=== PATIENT | female | born 1955 | race Caucasian/White ===

== ENCOUNTER 2018-04-11 06:47 | Emergency (ER) | payer OTHER ==
[2018-04-11] MEDS ORDERED: LIDOCAINE PATCH 5% TOP PRN (07:10)
[2018-04-11] MEDS ORDERED: oxyCOD/ACETAMIN 5 MG/325 MG TABLET PO STA (07:10)
--- NOTE | 2018-04-11 07:23 | ED Physician Documentation ---
History of Present Illness - Stated complaint Stated Complaint: LEFT RIB INJ - Chief complaint Chief Complaint: General - Additonal information Additional information: hx from pt 62 stepped off a high curb and fell injuring L ant lower L ribs several days ago no head neck injury pain is inc despite motrin no blood thinners no abd pain Review of Systems Constitutional: denies: Fever, Chills Cardiac: reports: Chest pain / pressure Respiratory: reports: Dyspnea (due to pain) GI: denies: Abdominal Pain Endocrine: denies: Easy bruising / bleeding PD PAST MEDICAL HISTORY - Present Medications Home Medications: Ambulatory Orders Medication Instructions Recorded Confirmed Aspirin 1 tab PO DAILY 04/11/18 04/11/18 Cholecalciferol (Vitamin D3) 1 tab PO DAILY 04/11/18 04/11/18 [Vitamin D3] Lidocaine Patch 5% [Lidoderm Patch] 1 each TOP DAILY PRN #10 patch 04/11/18 Losartan Potassium 1 tab PO DAILY 04/11/18 04/11/18 Lovastatin 1 tab PO DAILY 04/11/18 04/11/18 Melatonin 1 tab PO QPM 04/11/18 04/11/18 Oxycodone HCl/Acetaminophen 1 each PO Q6HR PRN #15 tablet 04/11/18 [Percocet 5-325 mg Tablet] - Allergies Allergies/Adverse Reactions: Allergies Allergy/AdvReac Type Severity Reaction Status Date / Time Cephalosporins Allergy Anaphylaxis Verified 04/11/18 06:57 Penicillins Allergy Anaphylaxis Verified 04/11/18 06:57 Sulfa (Sulfonamide Allergy Anaphylaxis Verified 04/11/18 06:57 Antibiotics) PD ED PE NORMAL - Vitals Vital signs reviewed: Yes - General General: Alert and oriented X 3 - HEENT HEENT: Atraumatic - Cardiac Cardiac: RRR - Respiratory Respiratory: Other (shallow but has everardo breath sounds, severer TTP ant lower left ribs, no bruise or crepitus) - Abdomen Abdomen: Other (no splenic TTP or swelling) - Derm Derm: Normal color - Neuro Neuro: Alert and oriented X 3 Results - Vitals Vitals: Vital Signs - 24 hr 04/11/18 06:52 Temperature 36.5 C Heart Rate 105 H Respiratory 18 Rate Blood Pressure 150/76 H O2 Saturation 98 Oxygen O2 Source Room air - Rads (name of study) L ribs and CXR Radiology: See rad report (acute min displaced L ant rib fx (per rad report right but looks left to me and on exam pain is left sided)) PD MEDICAL DECISION MAKING - ED course ED course: MSE performed injury identified - rib fx without pneumo hemo no life/limb threatening illness or injury identified s/sx managed and tx initiated feel pt stable and safe for dc - Sepsis Event Vital Signs: Vital Signs - 24 hr 04/11/18 06:52 Temperature 36.5 C Heart Rate 105 H Respiratory 18 Rate Blood Pressure 150/76 H O2 Saturation 98 Oxygen O2 Source Room air Departure - Departure Disposition: Home, Self Care Clinical Impression: Closed rib fracture Qualifiers: Encounter type: initial encounter Rib fracture type: single rib Laterality: left Qualified Code(s): S22.32XA - Fracture of one rib, left side, initial encounter for closed fracture Condition: Good Instructions: ED Fx Rib Prescriptions: Oxycodone HCl/Acetaminophen [Percocet 5-325 mg Tablet] 1 each PO Q6HR PRN #15 tablet PRN Reason: Severe Pain Lidocaine Patch 5% [Lidoderm Patch] 1 each TOP DAILY PRN #10 patch PRN Reason: Pain Comments: You have a fracture of rib number 7. There is no lung collapse or bleeding of the lung It is safe for you to go home The treatment for rib fractures without underlying lung injury is primarily pain management and encouraging deep breathing several times a day to prevent developing lung collapse or infection In addition to the motrin you have been taking, i have prescribed lidocaine patches - may wear one per day to the site of pain for up to 12 hr a day. And percocet which is a narcotic -- please limit narcotic use to severe pain only. And we gave you a device called an incentive spirometer that i would like you to use every hr while awake to help keep you lung inflated. Follow up with your PMD as needed. Return to the ER if worse
--- NOTE | 2018-04-11 07:50 | XRAY Report ---
Procedure Date: 04/11/2018 Accession Number: [id number] / [id number] Procedure: XR - Ribs w/PA Chest LT CPT Code: FULL RESULT: EXAM: LEFT RIB RADIOGRAPHY EXAM DATE: 04/11/2018 07:41 AM. CLINICAL HISTORY: Fell 5 days ago , hurt anterior lower left ribs. Left rib pain. COMPARISON: None. TECHNIQUE: 1 view of the chest and 2 views of the ribs. FINDINGS: Bones: There is an acute minimally displaced fracture of the anterior aspect of the right seventh rib, seen on the FRAZIER image only. The remainder of visualized bones appear intact. Lungs: No focal opacities. No pneumothorax. No pleural effusions. Mediastinum: Heart and mediastinal contours are unremarkable. Other: None. IMPRESSION: 1. Acute minimally displaced fracture of the right anterior seventh rib. 2. No pneumothorax, pleural effusion, or other acute cardiopulmonary. RADIA
[2018-04-11 08:47] VITALS: BP 146/91
== END 2018-04-11 08:47 | disposition home or self-care (01) ==
LOC: ED 06:47
DX: S22.32XA Fracture of one rib, left side, initial encounter for closed fracture (principal); W10.1XXA Fall (on)(from) sidewalk curb, initial encounter; Y92.480 Sidewalk as the place of occurrence of the external cause
CPT/HCPCS: 71101; 99283; A9270

== ENCOUNTER 2019-11-05 09:34 | Outpatient (CLI) | payer MEDICARE ==
[2019-11-05 17:29] LABS: ALBUMIN 4.1 g/dL (3.2-5.5); ALBUMIN/GLOBULIN RATIO 1.2 (1.0-2.2); ALKALINE PHOSPHATASE 72 IU/L (42-121); ALT ALANINE AMINOTRANSFERASE 36 IU/L (10-60); AST ASPARTATE AMINOTRANSFERASE 29 IU/L (10-42); BILIRUBIN,TOTAL 1.4 mg/dL (0.2-1.0); BUN - BLOOD UREA NITROGEN 21 mg/dL (6-20); CALCIUM 9.1 mg/dL (8.5-10.3); CARBON DIOXIDE - CO2 27 mmol/L (21-32); CHLORIDE 101 mmol/L (101-111); CHOL/HDL RATIO 3.4 (<4.4); CHOLESTEROL 143 mg/dL; CREATININE 0.8 mg/dL (0.4-1.0); GFR - MDRD 72 (>89); GLUCOSE 106 mg/dL (70-100); HDL CHOLESTEROL 42 mg/dL; LDL CHOLESTEROL,CALCULATED 58 mg/dL; LDL/HDL RATIO 1.4 (<4.4); SODIUM 138 mmol/L (135-145); TOTAL PROTEIN 7.4 g/dL (6.7-8.2); VLDL CHOLESTEROL 43 mg/dL
== END 2019-11-05 09:35 | disposition home or self-care (01) ==
LOC: LAB.S 09:34
PROVIDERS: ATTEND Internal Medicine
DX: E78.5 Hyperlipidemia, unspecified (principal); E03.9 Hypothyroidism, unspecified
CPT/HCPCS: 36415; 80053; 80061; 83721; 84443

== ENCOUNTER 2020-01-14 17:44 | Outpatient (CLI) | payer MEDICARE | END 2020-01-14 17:45 | disposition home or self-care (01) | LOC: COV 17:44 | PROVIDERS: ATTEND Family Medicine | DX: R50.9 Fever, unspecified (principal); M79.10 Myalgia, unspecified site; R53.83 Other fatigue; J02.9 Acute pharyngitis, unspecified; R19.7 Diarrhea, unspecified | CPT/HCPCS: 81599 ==

== ENCOUNTER 2020-04-02 13:46 | Outpatient (CLI) | payer MEDICARE ==
--- NOTE | 2020-04-02 14:53 | DEXA Report ---
Reason: POST MENOPAUSAL Procedure Date: 04/02/2020 Accession Number: [id number] / [id number] Procedure: DEX - Dexa Spine and/or Hip CPT Code: Final Report FULL RESULT: PROCEDURE: Dexa Spine and/or Hip INDICATIONS: POST MENOPAUSAL TECHNIQUE: Dual energy x-ray absorptiometry (DXA) was performed on a Center'd System. Regions measured are the AP Spine, femoral neck, and if needed forearm. COMPARISON: None. FINDINGS: Lumbar Spine: Bone Mineral Density 1.052g/cm/cm,T score -1.0 Total left Hip: Bone Mineral Density 1.03 g/cm/cm,T score 0.2. Left Femoral Neck: Bone Mineral Density 0.899 g/cm/cm, T score -1.0 (T score greater or equal to -1.0: NORMAL) (T score from -1.1 to -2.4: OSTEOPENIA) (T score less than or equal to -2.5 to: OSTEOPOROSIS) Impression: Normal bone mineral density. Patients with diagnosis of osteoporosis or osteopenia should have regular bone mineral density assessment. For those eligible for Medicare, routine testing is allowed once every 2 years. Testing frequency can be increased for patients who have rapidly progressing disease or for those who are receiving medical therapy to restore bone mass. Reviewed by: Michel Stapleton MD on 04/02/2020 2:52 PM PDT Approved by: Michel Stapleton MD on 04/02/2020 2:52 PM PDT Station ID: [id number]
== END 2020-04-02 13:47 | disposition home or self-care (01) ==
LOC: DI 13:46
PROVIDERS: ATTEND Internal Medicine
DX: Z78.0 Asymptomatic menopausal state (principal)
CPT/HCPCS: 77080

== ENCOUNTER 2021-02-01 09:11 | Outpatient (CLI) | payer MEDICARE ==
[2021-02-01 14:55] LABS: BASOPHILS # (AUTO) 0.1 10^3/uL (0.0-0.1); EOSINOPHILS # (AUTO) 0.3 10^3/uL (0.0-0.7); EOSINOPHILS % (AUTO) 5.5 %; HCT - HEMATOCRIT 45.8 % (37.0-47.0); HGB - HEMOGLOBIN 15.3 g/dL (12.0-16.0); LYMPHOCYTES # (AUTO) 1.4 10^3/uL (1.5-3.5); LYMPHOCYTES % (AUTO) 23.7 %; MEAN CORPUSCULAR HEMOGLOBIN 30.7 pg (27.0-31.0); MEAN CORPUSCULAR HGB CONC 33.4 g/dL (32.0-36.0); MEAN CORPUSCULAR VOLUME 91.8 fL (81.0-99.0); MEAN PLATELET VOLUME 10.6 fL (7.9-10.8); MONOCYTES # (AUTO) 0.5 10^3/uL (0.0-1.0); MONOCYTES % (AUTO) 8.1 %; NEUTROPHILS # (AUTO) 3.7 10^3/uL (1.5-6.6); NEUTROPHILS % (AUTO) 61.5 %; PLT - PLATELET COUNT 194 10^3/uL (130-450); RED BLOOD COUNT 4.99 10^6/uL (4.20-5.40); RED CELL DISTRIBUTION WIDTH 13.9 % (12.0-15.0)
[2021-02-01 15:19] LABS: ALBUMIN 4.1 g/dL (3.2-5.5); ALBUMIN/GLOBULIN RATIO 1.4 (1.0-2.2); ALKALINE PHOSPHATASE 77 IU/L (42-121); ALT ALANINE AMINOTRANSFERASE 28 IU/L (10-60); AST ASPARTATE AMINOTRANSFERASE 27 IU/L (10-42); BILIRUBIN,TOTAL 1.3 mg/dL (0.2-1.0); BUN - BLOOD UREA NITROGEN 25 mg/dL (6-20); CALCIUM 9.2 mg/dL (8.5-10.3); CARBON DIOXIDE - CO2 26 mmol/L (21-32); CHLORIDE 101 mmol/L (101-111); CHOL/HDL RATIO 4.5 (<4.4); CHOLESTEROL 178 mg/dL; CREATININE 0.9 mg/dL (0.4-1.0); GFR - MDRD 63 (>89); GLUCOSE 103 mg/dL (70-100); HDL CHOLESTEROL 40 mg/dL; LDL CHOLESTEROL,CALCULATED 83 mg/dL; LDL/HDL RATIO 2.1 (<4.4); POTASSIUM 4.3 mmol/L (3.5-5.0); SODIUM 137 mmol/L (135-145); TOTAL PROTEIN 7.1 g/dL (6.7-8.2); TRIGLYCERIDES 273 mg/dL; VLDL CHOLESTEROL 55 mg/dL
[2021-02-01 15:28] LABS: THYROID STIMULATING HORMONE 2.55 uIU/mL (0.34-5.60)
== END 2021-02-01 09:12 | disposition home or self-care (01) ==
LOC: LAB.S 09:11
PROVIDERS: ATTEND Registered Nurse
DX: E78.5 Hyperlipidemia, unspecified (principal); E03.9 Hypothyroidism, unspecified; I10 Essential (primary) hypertension; M54.31 Sciatica, right side
CPT/HCPCS: 36415; 80053; 80061; 83721; 84443; 85025

== ENCOUNTER 2021-02-11 07:27 | Day surgery (SDC) | payer MEDICARE ==
[~2021-02-11 07:27] MED LIST: SODIUM/POTASSIUM/MAG SULFATES 354 ML PREP KIT PO SCH
[2021-02-11] MEDS ORDERED: LACTATED RINGERS 1,000 ML IV ONE ×2 (07:58→09:10)
[2021-02-11] MEDS ORDERED: ONDANSETRON 4 MG/2 ML VIAL ONE (08:01)
[2021-02-11] MEDS ORDERED: MIDAZOLAM 2 MG/2 ML VIAL ONE ×3 (08:25→08:47)
[2021-02-11] MEDS ORDERED: fentaNYL 250 MCG/5 ML VIAL ONE (08:26)
[2021-02-11 09:27] VITALS: BP 148/86
== END 2021-02-11 07:28 | disposition home or self-care (01) ==
LOC: SDS 07:27
PROVIDERS: ATTEND Surgery
PROC: 0DBL8ZX Excision of Transverse Colon, Via Natural or Artificial Opening Endoscopic, Diagnostic (ICD-10-PCS; principal; 2021-02-11 09:00)
DX: Z12.11 Encounter for screening for malignant neoplasm of colon (principal); D12.3 Benign neoplasm of transverse colon; K57.30 Diverticulosis of large intestine without perforation or abscess without bleeding; Z87.19 Personal history of other diseases of the digestive system; Z90.49 Acquired absence of other specified parts of digestive tract
CPT/HCPCS: 45380; A9270; J3010; J7120

== ENCOUNTER 2021-04-02 08:00 | Outpatient (CLI) | payer MEDICARE ==
--- NOTE | 2021-04-02 15:19 | XRAY Report ---
PROCEDURE: Chest 2 View X-Ray INDICATIONS: CHEST PAIN, ACUTE TECHNIQUE: 2 view(s) of the chest. COMPARISON: None. FINDINGS: Surgical changes and devices: None. Lungs and pleura: No pleural effusions or pneumothorax. Lungs are clear. Mediastinum: Mediastinal contours are normal. Heart size is normal. Bones and chest wall: No suspicious bony abnormalities. Soft tissues appear unremarkable. IMPRESSION: No acute process. Reviewed by: Fitz Yusuf MD on 04/02/2021 3:18 PM PDT Approved by: Fitz Yusuf MD on 04/02/2021 3:18 PM PDT Station ID: [id number]
== END 2021-04-02 23:59 | disposition home or self-care (01) ==
LOC: DI.S 08:00
PROVIDERS: ATTEND Physician Assistant
DX: R07.89 Other chest pain (principal)

== ENCOUNTER 2022-03-30 12:13 | Outpatient (CLI) | payer MEDICARE | END 2022-03-30 12:14 | disposition home or self-care (01) | LOC: LAB.S 12:13 | PROVIDERS: ATTEND Registered Nurse | DX: Z53.9 Procedure and treatment not carried out, unspecified reason (principal) ==

== ENCOUNTER 2022-03-31 09:26 | Outpatient (CLI) | payer MEDICARE ==
[2022-03-31 15:15] LABS: ALBUMIN 4.1 g/dL (3.2-5.5); BILIRUBIN,DIRECT 0.2 mg/dL (0.1-0.5); BILIRUBIN,TOTAL 1.3 mg/dL (0.2-1.0); TOTAL PROTEIN 6.8 g/dL (6.7-8.2)
== END 2022-03-31 09:27 | disposition home or self-care (01) ==
LOC: LAB.S 09:26
PROVIDERS: ATTEND Physician Assistant
DX: B35.1 Tinea unguium (principal)
CPT/HCPCS: 36415; 80076

== ENCOUNTER 2022-06-07 10:37 | Outpatient (CLI) | payer MEDICARE ==
[2022-06-07 14:30] LABS: ALBUMIN 4.1 g/dL (3.2-5.5); BILIRUBIN,DIRECT 0.2 mg/dL (0.1-0.5); BILIRUBIN,TOTAL 1.3 mg/dL (0.2-1.0); TOTAL PROTEIN 7.1 g/dL (6.7-8.2)
== END 2022-06-07 10:38 | disposition home or self-care (01) ==
LOC: LAB.S 10:37
PROVIDERS: ATTEND Physician Assistant
DX: B35.1 Tinea unguium (principal)
CPT/HCPCS: 36415; 80076

== ENCOUNTER 2022-07-16 07:51 | Emergency (ER) | payer MEDICARE ==
[2022-07-16 08:04] VITALS: BP 107/75
--- NOTE | 2022-07-16 08:15 | ED Physician Documentation ---
PD HPI LOWER EXT INJURY - Stated complaint Stated Complaint: LEFT FOOT INJ - Chief complaint Chief Complaint: Trauma Ext - History obtained from History obtained from: Patient - History of Present Illness PD HPI LOW EXT INJURY LOCATION: Left - Additional information Additional information: She dropped an empty asia jar on the left foot and has moderate pain in the area of the first metatarsal. This happened around 8:30 PM last night. She declines pain medication on initial evaluation. She is able to walk but has to walk on the outside of the foot. Review of Systems Constitutional: reports: Reviewed and negative Eyes: reports: Reviewed and negative Respiratory: reports: Reviewed and negative PD PAST MEDICAL HISTORY - Past Medical History Past Medical History: Yes Cardiovascular: Hypertension, High cholesterol, Deep vein thrombosis Respiratory: None Neuro: None Endocrine/Autoimmune: HyPOthyroidism, Other GI: None SENIOR PRINCIPAL SOFTWARE ENGINEER: Endometriosis : None HEENT: None Psych: None Musculoskeletal: None Derm: None - Past Surgical History Past Surgical History: No General: Bowel surgery /SENIOR PRINCIPAL SOFTWARE ENGINEER: Hysterectomy HEENT: Tonsil/Adenoidectomy - Present Medications Home Medications: Ambulatory Orders Medication Instructions Recorded Confirmed Cholecalciferol (Vitamin D3) 1 tab PO DAILY 04/11/18 07/16/22 [Vitamin D3] Losartan Potassium 1 tab PO DAILY 04/11/18 07/16/22 Melatonin 1 tab PO QPM 04/11/18 07/16/22 hydroCHLOROthiazide 12.5 mg PO DAILY 02/10/21 07/16/22 [Hydrochlorothiazide] Aspirin [Aspirin EC] 81 mg PO DAILY 07/16/22 07/16/22 Atorvastatin Calcium 40 mg PO HS 07/16/22 07/16/22 Folic Acid 1 mg PO DAILY 07/16/22 07/16/22 Levothyroxine [Synthroid] 75 mcg PO QDAC 07/16/22 07/16/22 Methotrexate [Methotrexate Sodium] 6 tab PO Q7D 07/16/22 07/16/22 - Allergies Allergies/Adverse Reactions: Allergies Allergy/AdvReac Type Severity Reaction Status Date / Time Cephalosporins Allergy Anaphylaxis Verified 07/16/22 08:01 Penicillins Allergy Anaphylaxis Verified 07/16/22 08:01 Sulfa (Sulfonamide Allergy Anaphylaxis Verified 07/16/22 08:01 Antibiotics) - Social History Does the pt smoke?: No Smoking Status: Never smoker Does the pt drink ETOH?: Yes Does the pt have substance abuse?: No - Immunizations Immunizations are current?: Yes PD ED PE NORMAL - Vitals Vital signs reviewed: Yes - General General: Alert and oriented X 3, No acute distress - Extremities Extremities: Other (Tender and bruised in the area of the mid and distal first metatarsal with pain with range of motion of the great toe. No other foot or ankle tenderness.) - Neuro Neuro: Alert and oriented X 3, Normal speech Results - Vitals Vitals: Vital Signs - 24 hr 07/16/22 08:01 Temperature 36.3 C L Heart Rate 77 Respiratory 16 Rate Blood Pressure 107/75 O2 Saturation 100 Oxygen O2 Source Room air - Rads (name of study) Three-view x-ray of the left foot demonstrate soft tissue swelling without fracture Radiology: EMP read contemporaneously Departure - Departure Disposition: 01 Home, Self Care Clinical Impression: Crush injury of left foot Condition: Good Record reviewed to determine appropriate education?: Yes Instructions: ED Contusion Foot Comments: Tylenol and/or ibuprofen as needed for pain. Return for new or worsening symptoms. Follow-up with your doctor in a week for reevaluation if not better. Discharge Date/Time: 07/16/22 08:51
--- NOTE | 2022-07-16 08:49 | XRAY Report ---
PROCEDURE: Foot 3 View LT INDICATIONS: foot inj TECHNIQUE: 3 views of the foot were acquired. COMPARISON: None FINDINGS: Bones: No fractures or dislocations. No suspicious bony lesions. Plantar and dorsal calcaneal spur s. Soft tissues: No tibiotalar joint effusion. Achilles tendon appears normal. Mild great toe soft ti ssue swelling. No visible radiodense debris. IMPRESSION: Mild great toe soft tissue swelling without underlying foreign body or fracture. Reviewed by: Jessica Tavares MD on 07/16/2022 7:48 AM [facility] Approved by: Jessica Tavares MD on 07/16/2022 7:48 AM [facility] Station ID: [id number]
== END 2022-07-16 08:51 | disposition home or self-care (01) ==
LOC: ED 07:51
DX: S97.82XA Crushing injury of left foot, initial encounter (principal); W20.8XXA Other cause of strike by thrown, projected or falling object, initial encounter; I10 Essential (primary) hypertension
CPT/HCPCS: 99282; 99283

== ENCOUNTER 2022-12-29 09:32 | Outpatient (CLI) | payer MEDICARE ==
[2022-12-29 14:25] LABS: BASOPHILS % (AUTO) 0.8 %; EOSINOPHILS # (AUTO) 0.3 10^3/uL (0.0-0.7); EOSINOPHILS % (AUTO) 5.4 %; HCT - HEMATOCRIT 44.8 % (37.0-47.0); HGB - HEMOGLOBIN 14.8 g/dL (12.0-16.0); LYMPHOCYTES # (AUTO) 1.7 10^3/uL (1.5-3.5); LYMPHOCYTES % (AUTO) 32.5 %; MEAN CORPUSCULAR HEMOGLOBIN 30.8 pg (27.0-31.0); MEAN CORPUSCULAR VOLUME 93.1 fL (81.0-99.0); MEAN PLATELET VOLUME 10.3 fL (7.9-10.8); MONOCYTES # (AUTO) 0.5 10^3/uL (0.0-1.0); MONOCYTES % (AUTO) 9.9 %; NEUTROPHILS # (AUTO) 2.7 10^3/uL (1.5-6.6); PLT - PLATELET COUNT 216 10^3/uL (130-450); RED BLOOD COUNT 4.81 10^6/uL (4.20-5.40); RED CELL DISTRIBUTION WIDTH 13.6 % (12.0-15.0); WHITE BLOOD COUNT 5.2 x10^3/uL (4.8-10.8)
[2022-12-29 14:52] LABS: ALBUMIN 3.8 g/dL (3.2-5.5); ALBUMIN/GLOBULIN RATIO 1.3 (1.0-2.2); ALKALINE PHOSPHATASE 89 IU/L (42-121); ALT ALANINE AMINOTRANSFERASE 27 IU/L (10-60); AST ASPARTATE AMINOTRANSFERASE 24 IU/L (10-42); BILIRUBIN,TOTAL 1.7 mg/dL (0.2-1.0); BUN - BLOOD UREA NITROGEN 24 mg/dL (6-20); CALCIUM 9.2 mg/dL (8.5-10.3); CARBON DIOXIDE - CO2 30 mmol/L (21-32); CHLORIDE 104 mmol/L (101-111); CHOL/HDL RATIO 3.5 (<4.4); CHOLESTEROL 138 mg/dL; CREATININE 0.8 mg/dL (0.4-1.0); GFR - MDRD 71 (>89); GLUCOSE 104 mg/dL (70-100); HDL CHOLESTEROL 39 mg/dL; LDL CHOLESTEROL,CALCULATED 62 mg/dL; LDL/HDL RATIO 1.6 (<4.4); POTASSIUM 4.1 mmol/L (3.5-5.0); SODIUM 138 mmol/L (135-145); TOTAL PROTEIN 6.8 g/dL (6.7-8.2); TRIGLYCERIDES 184 mg/dL; VLDL CHOLESTEROL 37 mg/dL
[2022-12-29 15:05] LABS: THYROID STIMULATING HORMONE 2.77 uIU/mL (0.34-5.60)
== END 2022-12-29 09:33 | disposition home or self-care (01) ==
LOC: LAB.S 09:32
PROVIDERS: ATTEND Registered Nurse
DX: E03.9 Hypothyroidism, unspecified (principal); I25.2 Old myocardial infarction
CPT/HCPCS: 36415; 80053; 80061; 83721; 84443; 85025

== ENCOUNTER 2023-10-25 20:44 | Emergency (ER) | payer MEDICARE ==
--- NOTE | 2023-10-25 21:03 | ED Physician Documentation ---
PD HPI CHEST PAIN - Stated complaint Stated Complaint: CHEST PX - Chief complaint Chief Complaint: Cardiac - History obtained from History obtained from: Patient - History of Present Illness Timing - onset: Today Timing - onset during: Rest Pain level max: 8 Pain level now: 3 Quality: Aching, Pain Radiation: Other (non-radiating) - Additional information Additional information: Patient is a 68-year-old female who presents to the emergency department with epigastric pain. She states that she ate tacos with sour cream and cheese and guacamole tonight. Pain started about 40 minutes later. She states it starts in her mid back and goes to her epigastric region. This has happened 9 or 10 times in the past few years. No cause found. She states that she has had a normal cardiac stress test. Stress test was within the last 12 months. She has never had her gallbladder evaluated. Does have a history of abdominal wall hernias. Also has a history of complicated diverticulitis that resulted in a colostomy. The colostomy has been reversed now. Review of Systems Constitutional: denies: Fever, Chills Respiratory: denies: Cough GI: denies: Nausea, Vomiting, Diarrhea Skin: denies: Rash Musculoskeletal: denies: Neck pain, Back pain Neurologic: denies: Focal weakness, Numbness, Headache PD PAST MEDICAL HISTORY - Past Medical History Past Medical History: Yes Cardiovascular: Hypertension, High cholesterol, Deep vein thrombosis Respiratory: None Neuro: None Endocrine/Autoimmune: HyPOthyroidism, Other GI: None CHIEF PROGRAM OFFICER: Endometriosis : None HEENT: None Psych: None Musculoskeletal: None Derm: None - Past Surgical History Past Surgical History: No General: Bowel surgery /CHIEF PROGRAM OFFICER: Hysterectomy HEENT: Tonsil/Adenoidectomy - Present Medications Home Medications: Ambulatory Orders Medication Instructions Recorded Confirmed Cholecalciferol (Vitamin D3) 1 tab PO DAILY 04/11/18 07/16/22 [Vitamin D3] Losartan Potassium 1 tab PO DAILY 04/11/18 07/16/22 Melatonin 1 tab PO QPM 04/11/18 07/16/22 hydroCHLOROthiazide 12.5 mg PO DAILY 02/10/21 07/16/22 [Hydrochlorothiazide] Aspirin [Aspirin EC] 81 mg PO DAILY 07/16/22 07/16/22 Atorvastatin Calcium 40 mg PO HS 07/16/22 07/16/22 Folic Acid 1 mg PO DAILY 07/16/22 07/16/22 Levothyroxine [Synthroid] 75 mcg PO QDAC 07/16/22 07/16/22 Methotrexate [Methotrexate Sodium] 6 tab PO Q7D 07/16/22 07/16/22 - Allergies Allergies/Adverse Reactions: Allergies Allergy/AdvReac Type Severity Reaction Status Date / Time Cephalosporins Allergy Anaphylaxis Verified 10/25/23 20:56 Penicillins Allergy Anaphylaxis Verified 10/25/23 20:56 Sulfa (Sulfonamide Allergy Anaphylaxis Verified 10/25/23 20:56 Antibiotics) - Social History Does the pt smoke?: No Smoking Status: Never smoker Does the pt drink ETOH?: Yes Does the pt have substance abuse?: No - Immunizations Immunizations are current?: Yes - POLST Patient has POLST: No PD ED PE NORMAL - Vitals Vital signs reviewed: Yes - General General: Alert and oriented X 3, No acute distress - HEENT HEENT: PERRL, Moist mucous membranes - Cardiac Cardiac: RRR, Strong equal pulses - Respiratory Respiratory: No respiratory distress, Clear bilaterally - Abdomen Abdomen: Soft, Non distended, Other (Tender to palpation right upper quadrant. Positive Hinds sign.) - Back Back: No spinal TTP - Derm Derm: Warm and dry - Extremities Extremities: No edema - Neuro Neuro: Alert and oriented X 3 - Psych Psych: Normal mood, Normal affect Results - Vitals Vitals: Vital Signs - 24 hr 10/25/23 10/25/23 10/25/23 20:45 21:46 22:39 Temperature 37.1 C Heart Rate 78 79 82 Respiratory 18 18 23 Rate Blood Pressure 153/81 H 135/71 H 137/76 H O2 Saturation 100 98 95 Oxygen O2 Source Room air - EKG (time done) 2046 EKG releavant findings:: EKG personally interpreted by author of this note. Relevant findings are: Rate: Rate (enter#) (76) Rhythm: NSR [place]: Normal Intervals: Normal SC QRS: Normal Ischemia: Normal ST segments - Labs Labs: Laboratory Tests 10/25/23 10/25/23 21:00 21:00 WBC 6.4 RBC 4.57 Hgb 13.3 Hct 41.0 MCV 89.7 MCH 29.1 MCHC 32.4 RDW 13.2 Plt Count 200 MPV 9.5 Neut # (Auto) 3.7 Lymph # (Auto) 1.7 [place] # (Auto) 0.5 Eos # (Auto) 0.4 Baso # (Auto) 0.0 Absolute Nucleated RBC 0.00 Nucleated RBC % 0.0 Sodium 138 Potassium 3.3 L Chloride 101 Carbon Dioxide 29 Anion Gap 8.0 BUN 27 H Creatinine 0.8 Estimated GFR (MDRD) 71 L Glucose 107 H Calcium 9.5 Total Bilirubin 1.2 H AST 34 ALT 28 Alkaline Phosphatase 125 H Troponin I High Sens 2.4 Total Protein 6.7 Albumin 3.9 Globulin 2.8 Albumin/Globulin Ratio 1.4 Lipase 23 - Rads (name of study) RUQ US Relevant Findings:: Final report received, See rad report cxr Relevant Findings:: Final report received, See rad report PD Medical Decision Making - ED course Complexity details: reviewed results, re-evaluated patient, considered differential, d/w patient ED course: 68-year-old female with what appears to be biliary colic. She has multiple small gallstones. Minimal elevation of her bilirubin and alkaline phosphatase. Pain completely resolved in the emergency department, likely passed a small stone. Blood cell count is normal. No evidence of cholecystitis on ultrasound. Patient is well-appearing, nontoxic. Afebrile. Tolerating p.o. without difficulty. Recommend low-fat diet, follow-up with outpatient surgery for gallbladder removal when she is healed from her most recent hernia surgery. Abdominal exam is otherwise benign. No signs of infection. Patient counseled regarding signs and symptoms for which I believe and urgent re-evaluation would be necessary. Patient with good understanding of and agreement to plan and is comfortable going home at this time This document was made in part using voice recognition software. While efforts are made to proofread this document, sound alike and grammatical errors may occur. Departure - Departure Disposition: 01 Home, Self Care Clinical Impression: Biliary colic Condition: Good Instructions: ED Gallstone W Biliary Colic Follow-Up: Leesa Torres ARNP [Primary Care Provider] - [facility] [Provider Group] Oswaldo Elliott MD [Provider Admit Priv/Credential] - Comments: Your history, physical, laboratory studies and ultrasound are consistent with gallbladder disease causing pain or what we refer to as biliary colic. You are likely passing small stones and given the lodged in your common bile duct they cause an obstruction which causes pain, when they passed through the duct the obstruction resolves and your pain resolves. Please follow a very low-fat diet. It is importantly follow-up with a surgeon to discuss removal of your gallbladder. Please return if you worsen especially for persistent pain, fevers or vomiting. Forms: PCP List
[2023-10-25 21:05] LABS: BASOPHILS % (AUTO) 0.6 %; EOSINOPHILS # (AUTO) 0.4 10^3/uL (0.0-0.7); EOSINOPHILS % (AUTO) 6.7 %; HGB - HEMOGLOBIN 13.3 g/dL (12.0-16.0); LYMPHOCYTES # (AUTO) 1.7 10^3/uL (1.5-3.5); LYMPHOCYTES % (AUTO) 26.9 %; MEAN CORPUSCULAR HEMOGLOBIN 29.1 pg (27.0-31.0); MEAN CORPUSCULAR HGB CONC 32.4 g/dL (32.0-36.0); MEAN CORPUSCULAR VOLUME 89.7 fL (81.0-99.0); MEAN PLATELET VOLUME 9.5 fL (7.9-10.8); MONOCYTES # (AUTO) 0.5 10^3/uL (0.0-1.0); MONOCYTES % (AUTO) 8.1 %; NEUTROPHILS # (AUTO) 3.7 10^3/uL (1.5-6.6); NEUTROPHILS % (AUTO) 57.4 %; PLT - PLATELET COUNT 200 10^3/uL (130-450); RED BLOOD COUNT 4.57 10^6/uL (4.20-5.40); RED CELL DISTRIBUTION WIDTH 13.2 % (12.0-15.0); WHITE BLOOD COUNT 6.4 x10^3/uL (4.8-10.8)
[2023-10-25 21:36] LABS: TROPONIN I HIGH SENSITIVITY 2.4 ng/L (2.3-14.8)
[2023-10-25 21:37] LABS: ALBUMIN 3.9 g/dL (3.2-5.5); ALBUMIN/GLOBULIN RATIO 1.4 (1.0-2.2); BILIRUBIN,TOTAL 1.2 mg/dL (0.2-1.0); CALCIUM 9.5 mg/dL (8.5-10.3); CREATININE 0.8 mg/dL (0.6-1.3); POTASSIUM 3.3 mmol/L (3.5-4.5); TOTAL PROTEIN 6.7 g/dL (6.4-8.9)
--- NOTE | 2023-10-25 22:25 | XRAY Report ---
PROCEDURE: Chest 1V INDICATIONS: Chest pain TECHNIQUE: One view of the chest was acquired. COMPARISON: None. FINDINGS: Surgical changes and devices: None. Lungs and pleura: No pleural effusions or pneumothorax. Lungs are clear. Mediastinum: Mediastinal contours appear normal. Heart size is normal. Bones and chest wall: No suspicious bony lesions. Overlying soft tissues appear unremarkable. IMPRESSION: No acute cardiopulmonary process. Reviewed by: Julian Ambrosio MD on 10/25/2023 10:24 PM [facility] Approved by: Julian Ambrosio MD on 10/25/2023 10:24 PM [facility] Station ID: [id number]
[2023-10-25 22:46] VITALS: BP 137/76
--- NOTE | 2023-10-25 22:48 | Ultrasound Report ---
PROCEDURE: Abdomen Limited INDICATIONS: RUQ abd pain TECHNIQUE: Real-time focused scanning was performed of the abdomen, with image documentation. COMPARISONS: None. FINDINGS: Liver: Increased liver echogenicity, commonly mild hepatic steatosis. Gallbladder: Cholelithiasis with mild focal wall thickening. Negative sonographic Hinds sign. Biliary ducts: Intrahepatic bile ducts are non-dilated. Extrahepatic bile duct caliber measures 5 m m. Normal is 6-7 mm or less in diameter, or 10 mm or less post-cholecystectomy. Pancreas: Not well visualized due to overlying bowel gas. Right kidney: Normal in size and echotexture. Right kidney measures 11.3 cm long. No hydronephrosis or nephrolithiasis. No solid masses. No complex renal cystic lesions which require follow-up. Miscellaneous: No free abdominal fluid. IMPRESSION: Cholelithiasis with mild focal wall thickening. Findings may indicate early acute cholecystitis in th e setting of right upper quadrant pain. Reviewed by: Julian Ambrosio MD on 10/25/2023 10:47 PM PST Approved by: Julian Ambrosio MD on 10/25/2023 10:47 PM PST Station ID: [id number]
[2023-10-25 23:10] VITALS: O2SAT 98
== END 2023-10-25 23:01 | disposition home or self-care (01) ==
LOC: ED 20:44
DX: K80.50 Calculus of bile duct without cholangitis or cholecystitis without obstruction (principal); I10 Essential (primary) hypertension; E78.00 Pure hypercholesterolemia, unspecified; E03.9 Hypothyroidism, unspecified; Z79.899 Other long term (current) drug therapy; Z79.82 Long term (current) use of aspirin
CPT/HCPCS: 36415; 80053; 83690; 84484; 85025; 93005; 99283; 99284

== ENCOUNTER 2023-11-27 09:51 | Outpatient (CLI) | payer MEDICARE ==
--- NOTE | 2023-11-29 07:34 | Mammography Report ---
BILATERAL DIGITAL SCREENING MAMMOGRAM 3D/2D: 11/27/2023 CLINICAL: Routine screening. Family history of breast cancer. Comparison is made to exams dated: 05/03/2020 mammogram - [facility] and 02/28/2018 m ammogram - [facility]. Both breasts are almost entirely fatty (category a/<25% glandular tissue). No significant masses, calcifications, or other findings are seen in either breast. There has been no significant interval change. IMPRESSION: NEGATIVE There is no mammographic evidence of malignancy. A 1 year screening mammogram is recommended. Based on the Tyrer Cuzick model (a risk assessment model) the patient's lifetime risk is 4.8% and her 10 year risk is 2.9%. According to the ACR, ACS, and NCCN guidelines, an annual breast MRI exam caitlin g with mammogram is recommended if the patient's lifetime risk is 20% or greater. This exam was interpreted at Station ID: [id number]. NOTE: For mammograms, a report in lay terms will be sent to the patient. Approximately 15% of breast malignancies will not be visualized mammographically. In the management of a palpable breast mass, a negative mammogram must not discourage biopsy of a clinically suspicious lesion. Electronically Signed By: Lucina Zimmer M.D., PH.D eb/penrad:11/28/2023 10:08:12 letter sent: No_Letter ACR BI-RADS Category 1: Negative 3341F PARENCHYMAL PATTERN: (F) - The breast(s) demonstrate(s) diffuse fatty replacement. BI-RADS CATEGORY: (1) - 1 RECOMMENDATION: (ANNUAL) - Recommend routine annual screening mammography. [id number] 1 year screening LATERALITY: (B)
== END 2023-11-27 09:52 | disposition home or self-care (01) ==
LOC: DI.S 09:51
PROVIDERS: ATTEND Nurse Practitioner
DX: Z12.31 Encounter for screening mammogram for malignant neoplasm of breast (principal); Z80.3 Family history of malignant neoplasm of breast

== ENCOUNTER 2024-01-01 08:51 | Outpatient (CLI) | payer MEDICARE ==
[2024-01-01 15:06] LABS: BASOPHILS % (AUTO) 0.7 %; EOSINOPHILS # (AUTO) 0.3 10^3/uL (0.0-0.7); EOSINOPHILS % (AUTO) 5.9 %; HCT - HEMATOCRIT 45.5 % (37.0-47.0); HGB - HEMOGLOBIN 14.3 g/dL (12.0-16.0); LYMPHOCYTES # (AUTO) 1.5 10^3/uL (1.5-3.5); MEAN CORPUSCULAR HEMOGLOBIN 29.3 pg (27.0-31.0); MEAN CORPUSCULAR HGB CONC 31.4 g/dL (32.0-36.0); MEAN CORPUSCULAR VOLUME 93.2 fL (81.0-99.0); MEAN PLATELET VOLUME 10.3 fL (7.9-10.8); MONOCYTES # (AUTO) 0.5 10^3/uL (0.0-1.0); MONOCYTES % (AUTO) 8.6 %; NEUTROPHILS # (AUTO) 3.4 10^3/uL (1.5-6.6); NEUTROPHILS % (AUTO) 58.5 %; PLT - PLATELET COUNT 221 10^3/uL (130-450); RED BLOOD COUNT 4.88 10^6/uL (4.20-5.40); RED CELL DISTRIBUTION WIDTH 14.3 % (12.0-15.0); WHITE BLOOD COUNT 5.7 x10^3/uL (4.8-10.8)
[2024-01-01 15:14] LABS: THYROID STIMULATING HORMONE 5.08 uIU/mL (0.34-5.60)
[2024-01-01 15:15] LABS: ALBUMIN 3.9 g/dL (3.2-5.5); ALBUMIN/GLOBULIN RATIO 1.3 (1.0-2.2); ALKALINE PHOSPHATASE 122 IU/L (42-121); ALT ALANINE AMINOTRANSFERASE 17 IU/L (10-60); AST ASPARTATE AMINOTRANSFERASE 16 IU/L (10-42); BILIRUBIN,TOTAL 0.8 mg/dL (0.2-1.0); BUN - BLOOD UREA NITROGEN 19 mg/dL (6-20); CALCIUM 9.8 mg/dL (8.5-10.3); CARBON DIOXIDE - CO2 28 mmol/L (21-32); CHLORIDE 103 mmol/L (101-111); CHOL/HDL RATIO 4.3 (<4.4); CHOLESTEROL 142 mg/dL; CREATININE 0.8 mg/dL (0.6-1.3); GFR - MDRD 71 (>89); GLUCOSE 101 mg/dL (74-104); HDL CHOLESTEROL 33 mg/dL; LDL CHOLESTEROL,CALCULATED 49 mg/dL; LDL/HDL RATIO 1.5 (<4.4); POTASSIUM 4.2 mmol/L (3.5-4.5); SODIUM 138 mmol/L (135-145); TOTAL PROTEIN 6.9 g/dL (6.4-8.9); TRIGLYCERIDES 299 mg/dL (48-352); VLDL CHOLESTEROL 60 mg/dL
== END 2024-01-01 08:52 | disposition home or self-care (01) ==
LOC: LAB.S 08:51
PROVIDERS: ATTEND Registered Nurse
DX: Z79.899 Other long term (current) drug therapy (principal); E78.1 Pure hyperglyceridemia; E03.9 Hypothyroidism, unspecified
CPT/HCPCS: 36415; 80053; 80061; 83721; 84443; 85025